=== PATIENT | female | born 1945 | race Caucasian/White ===

== ENCOUNTER → 2021-04-24 | Outpatient (CLI) | payer MEDICARE, OTHER ==
[~2021-04-24] MED LIST: ASPIRIN EC81 MG PO; ATORVASTATIN CA20 MG PO; CALCIUM + VITA1 EACH PO; CITALOPRAM HBR10 MG PO; FLONASE ALLER15.8 ML; ISOSORBIDE MONO30 MG PO; LEVOTHYROXINE125 MCG PO; LORATADINE10 MG PO; METHOCARBAMOL500 MG PO; METOPROLOL TART25 MG PO; NITROGLYCERIN0.4 MG SL; NORCO 7.5-3251 EACH PO; PROTONIX40 MG PO; RANEXA500 MG PO
== END ==
LOC: KOH-I 10:00
DX: M25.551 Pain in right hip (principal); M16.11 Unilateral primary osteoarthritis, right hip
CPT/HCPCS: 73502

== ENCOUNTER 2022-02-02 19:35 | Emergency (ER) | payer MEDICARE, OTHER ==
[2022-02-02 20:46] LABS: HEMOGLOBIN 15.9 gm/dl (12.3-15.3); RED BLOOD COUNT 4.71 M/UL (4.00-5.10); WHITE BLOOD COUNT 16.5 K/UL (4.5-11.0)
[2022-02-02 21:13] LABS: BUN/CREATININE RATIO 25 (0-10)
[2022-02-03] MEDS ORDERED: ZOFRAN ODT 4 MG4 MG SL (03:54)
== END 2022-02-03 04:35 | disposition home or self-care (01) ==
LOC: ER1 19:35
PROVIDERS: Student in an Organized Health Care Education/Training Program
DX: E86.0 Dehydration (principal); R11.2 Nausea with vomiting, unspecified; M79.10 Myalgia, unspecified site; Z20.822 Contact with and (suspected) exposure to COVID-19; I48.91 Unspecified atrial fibrillation; J44.9 Chronic obstructive pulmonary disease, unspecified; Z85.3 Personal history of malignant neoplasm of breast; Z88.2 Allergy status to sulfonamides; Z88.5 Allergy status to narcotic agent; Z87.891 Personal history of nicotine dependence
CPT/HCPCS: 0240U; 71045; 80053; 81001; 82550; 82553; 84484; 85025; 93005; 96374; 96376; 99285; J2405; J7030; Q9967